=== PATIENT | male | born 1990 | race American Indian/Alaskan Native ===

== ENCOUNTER 2021-02-09 07:44 | Emergency (ER) | payer SELFPAY ==
[2021-02-09 07:50] VITALS: BP 140/96
--- NOTE | 2021-02-09 08:15 | Emergency Department Report ---
ED Chest Pain HPI - General Chief Complaint: Chest Pain Stated Complaint: CHEST PAIN Time Seen by Provider: 02/09/21 08:07 Source: patient Mode of arrival: Ambulatory Limitations: No Limitations - History of Present Illness Initial Comments: Male presents to the ER today with complaints of right-sided chest pain. Patient states that the pain started around 430 this morning when he rolled over onto his abdomen and put his arm up above his head. He states that the pain was constant until he arrived here in the ER. He states that he is no longer having pain. He denies any associated shortness of breath, diaphoresis, nausea, vomiting, back pain or abdominal pain. Denies any calf pain or lower extremity swelling. 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 He does not recall any particular injury. He states that he has been having chest pain off and on for the past year. He did mention it to his PCP who did an EKG but he states nothing else was done. He has not seen a ict sales representative for his chest pain as he had a stress test. He states that this is the first time to come to the ER for chest pain. Other than tobacco use he denies any other significant past medical history. He denies any risk factors for PE or DVT. He denies any family history of CAD. MD Complaint: chest pain -: Sudden, This morning (430) Severity scale (0 -10): 3 - Related Data Allergies Allergy/AdvReac Type Severity Reaction Status Date / Time shellfish derived Allergy Severe Anaphylaxis Verified 02/09/21 07:48 Heart Score - HEART Score History: Slightly suspicious EKG: Normal Age: < 45 Risk factors: 1-2 risk factors Troponin: < normal limit HEART Score: 1 - EKG Read Time Time EKG Completed: 07:50 EKG Read Time: 07:58 - Critical Actions Critical Actions: 0-3 pts:0.9-1.7%risk of adverse cardiac event.Candidate for discharge ED Review of Systems ROS: Stated complaint: CHEST PAIN Other details as noted in HPI Comment: All other systems reviewed and negative Respiratory: denies: cough, shortness of breath, wheezing Cardiovascular: chest pain. denies: palpitations, dyspnea on exertion, edema, syncope, paroxysmal nocturnal dyspnea Gastrointestinal: denies: abdominal pain, nausea, diarrhea Genitourinary: denies: urgency, dysuria, frequency, hematuria, discharge, testicular pain, testicular mass Musculoskeletal: denies: back pain, joint swelling, arthralgia, myalgia Skin: denies: rash, lesions, change in color, change in hair/nails, pruritus Neurological: denies: headache, weakness, numbness, paresthesias, confusion, abnormal gait, vertigo Psychiatric: denies: anxiety, depression, auditory hallucinations, visual hallucinations, homicidal thoughts, suicidal thoughts Hematological/Lymphatic: denies: easy bleeding, easy bruising, swollen glands ED Physical Exam - General Limitations: No Limitations General appearance: alert, obese - Head Head exam: Present: atraumatic, normocephalic, normal inspection - Eye Eye exam: Present: normal appearance, PERRL, EOMI Pupils: Present: normal accommodation - Neck Neck exam: Present: normal inspection, full ROM. Absent: meningismus - Respiratory Respiratory exam: Present: normal lung sounds bilaterally. Absent: respiratory distress, wheezes, rales, rhonchi, chest wall tenderness - Cardiovascular Cardiovascular Exam: Present: regular rate, normal rhythm, normal heart sounds - GI/Abdominal GI/Abdominal exam: Present: soft. Absent: distended, tenderness, guarding, rebound - Extremities Exam Extremities exam: Present: normal inspection, full ROM. Absent: tenderness, pedal edema, calf tenderness - Neurological Exam Neurological exam: Present: alert, oriented X3, CN II-XII intact, normal gait - Psychiatric Psychiatric exam: Present: normal affect, normal mood - Skin Skin exam: Present: intact ED Course Vital Signs 02/09/21 07:48 Temperature 98.9 F Pulse Rate 97 H Respiratory 16 Rate Blood Pressure 140/96 [Right] O2 Sat by Pulse 100 Oximetry ED Medical Decision Making - Lab Data Result diagrams: 02/09/21 10:21 02/09/21 10:21 - EKG Data EKG shows normal: sinus rhythm Rate: normal (88) - EKG Data Interpretation: normal EKG - Radiology Data Radiology results: report reviewed Patient: TO VICTORIA MR#: [id number] 4 : 1990 Acct:[id number] Age/Sex: 30 / M ADM Date: 02/09/21 Loc: ED Attending Dr: Ordering Physician: GUNJAN RUVALCABA Date of Service: 02/09/21 Procedure(s): XR chest routine 2V Accession Number(s): [id number] cc: GUNJAN RUVALCABA Fluoro Time In Minutes: CHEST 2 VIEWS INDICATION / CLINICAL INFORMATION: R Chest Pain. COMPARISON: None available. FINDINGS: SUPPORT DEVICES: None. HEART / MEDIASTINUM: No significant abnormality. LUNGS / PLEURA: No significant pulmonary or pleural abnormality. No pneumothorax. ADDITIONAL FINDINGS: No significant additional findings. IMPRESSION: 1. No acute findings. Signer Name: Jesus Valle MD Signed: 02/09/2021 9:00 AM Workstation Name: [id number] Transcribed By: Dictated By: Jesus Valle MD Electronically Authenticated By: Jesus Valle MD Signed Date/Time: 02/09/21899 DD/ 9 TD/TT: - Medical Decision Making The patient is resting comfortably and feels better, is alert and in no distress. The electrocardiogram shows no signs of acute ischemia and the history, exam, diagnostic testing and current condition do not suggest that this patient is having acute myocardial infarction, significant arrhythmia, unstable angina, esophageal perforation, pulmonary embolism, aortic dissection, pneumothorax, severe pneumonia, sepsis or other significant pathology that would warrant further testing, continued ED treatment, admission or cardiology or other specialist consultation at this time. The vital signs have been stable. The patient's condition is stable and appropriate for discharge. The patient will pursue further outpatient evaluation with the primary care physician, or other designated physician or ict sales representative. The patient and/or caregivers have expressed a clear and thorough understanding and agreed to follow-up as instructed. Critical care attestation.: If time is entered above; I have spent that time in minutes in the direct care of this critically ill patient, excluding procedure time. ED Disposition Clinical Impression: Nonspecific chest pain Disposition: HOME / SELF CARE / HOMELESS Is pt being admited?: No Does the pt Need Aspirin: No Condition: Stable Instructions: Nonspecific Chest Pain, Adult Additional Instructions: I recommend taking Tylenol and ibuprofen as needed for pain. I do recommend following up with your PCP but also the ict sales representative listed on your discharge instruction for further work-up and evaluation. Return to the ER if any point your pain worsens. Referrals: KAYLA HILLIARD MD [Primary Care Provider] - 3-5 Days WILLI MCBRIDE MD [Staff Physician] - 3-5 Days (Clerk Entry Level) Forms: Work/School Release Form(ED) Time of Disposition: 11:10
--- NOTE | 2021-02-09 09:05 | XRay Report ---
CHEST 2 VIEWS INDICATION / CLINICAL INFORMATION: R Chest Pain. COMPARISON: None available. FINDINGS: SUPPORT DEVICES: None. HEART / MEDIASTINUM: No significant abnormality. LUNGS / PLEURA: No significant pulmonary or pleural abnormality. No pneumothorax. ADDITIONAL FINDINGS: No significant additional findings. IMPRESSION: 1. No acute findings. Signer Name: Jesus Valle MD Signed: 02/09/2021 9:00 AM Workstation Name: [id number]
[2021-02-09 10:50] LABS: Basophils % (Auto) 0.4 % (0.0-1.8); Eosinophils # (Auto) 0.1 K/mm3 (0.0-0.4); Eosinophils % (Auto) 1.6 % (0.0-4.3); Hematocrit 45.7 % (35.5-45.6); Hemoglobin 14.6 gm/dl (11.8-15.2); Lymphocytes # (Auto) 1.8 K/mm3 (1.2-5.4); Lymphocytes % (Auto) 32.1 % (13.4-35.0); Mean Corpuscular HGB Conc 32 % (32-34); Mean Corpuscular Volume 88 fl (84-94); Monocytes # (Auto) 0.6 K/mm3 (0.0-0.8); Monocytes % (Auto) 10.7 % (0.0-7.3); Platelet Count 284 K/mm3 (140-440); Red Blood Count 5.18 M/mm3 (3.65-5.03); Red Cell Distribution Width 14.4 % (13.2-15.2)
[2021-02-09 11:00] LABS: Alanine Aminotransferase 21 units/L (7-56); Albumin 4.3 g/dL (3.9-5); BUN/Creatinine Ratio 14; Blood Urea Nitrogen 13 mg/dL (9-20); Hemolysis Index 7
--- NOTE | 2021-02-09 11:22 | Electrocardiograph Report ---
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
== END 2021-02-09 11:15 | disposition home or self-care (01) ==
LOC: ED 07:44
DX: R07.89 Other chest pain (principal)
CPT/HCPCS: 36415; 71046; 80053; 83690; 84484; 85025; 93005; 99284